=== PATIENT | male | born 1995 | race Caucasian/White ===

== ENCOUNTER 2016-11-03 14:41 | Emergency (ER) | payer OTHER ==
[~2016-11-03] VITALS: Wt 59.0 kg
[~2016-11-03 14:41] MED LIST: ALBUTEROL0.09 MG/A2 INH; ANUSOL-HC25 MG R; CIPRO500 MG PO; CLEOCIN150 MG PO; CLINDAMYCIN HC300 MG PO; DOXYCYCLINE MO100 MG PO; IBU-6600 MG PO; NORCO 5-325 TA1 EACH PO; TESSALON PERLE200 MG PO; TRAMADOL HCL50 MG PO; VOLTAREN50 M1 PO
[2016-11-03 14:42] VITALS: BP 139/54
[2016-11-03] MEDS ORDERED: VIBRAMYCIN100 MG PO (15:58)
[2016-11-03] MEDS ORDERED: MEDROL DOSEPAK4 MG PO (15:58)
[2016-11-03] MEDS ORDERED: ZYRTEC10 MG PO (15:59)
== END 2016-11-03 16:18 | disposition home or self-care (01) ==
LOC: ED 14:41
DX: J20.9 Acute bronchitis, unspecified (principal); J45.909 Unspecified asthma, uncomplicated; F17.200 Nicotine dependence, unspecified, uncomplicated; Z88.1 Allergy status to other antibiotic agents

== ENCOUNTER 2017-04-11 21:10 | Emergency (ER) | payer OTHER ==
[~2017-04-11] VITALS: Ht 175.2 cm; Wt 59.0 kg
[~2017-04-11 21:10] MED LIST changes: +MEDROL DOSEPAK4 MG PO; +VIBRAMYCIN100 MG PO; +ZYRTEC10 MG PO
[2017-04-11 23:05] VITALS: BP 118/72
[2017-04-11 23:59] LABS: BASO % 0.3 % (0.0-1.0); EOS # 0.1 10*3/uL (0.0-0.4); EOS % 0.6 % (1.0-4.0); HEMATOCRIT 38.6 % (42.0-52.0); HEMOGLOBIN 12.9 g/dl (14.0-18.0); LYMPH % 24.5 % (27.0-41.0); MEAN CELL VOLUME 85.8 fl (80.0-94.0); MEAN CORPUSCULAR HGB 28.7 pg (27.0-31.0); MEAN CORPUSCULAR HGB CONC 33.4 g/dl (33.0-37.0); MEAN PLATELET VOLUME 10.2 fl (9.6-12.3); MONO # 0.7 10*3/uL (0.1-1.0); MONO % 5.4 % (3.0-9.0); NEUT # 8.3 10*3/uL (2.3-7.9); PLATELET COUNT AUTOMATED 243 10*3/uL (130-400)
[2017-04-12] MEDS ORDERED: ALBUTEROL2.5 MG/0.5 INH (00:10)
[2017-04-12] MEDS ORDERED: DOXYCYCLINE100 M3 PO (00:10)
[2017-04-12] MEDS ORDERED: PREDNISONE10 MG PO (00:10)
[2017-04-12 00:11] LABS: ALBUMIN 3.7 gm/dl (3.1-4.5); ALKALINE PHOSPHATASE 79 U/L (45-117); BUN 12 mg/dl (7-24); CHLORIDE 106 mmol/L (98-107); CREATININE 0.73 mg/dL (0.70-1.30); LIPASE 170 U/L (73-393); POTASSIUM 3.7 mmol/L (3.5-5.1); SGOT/AST 27 IU/L (3-35); SGPT/ALT 43 U/L (12-78); SODIUM 139 mmol/L (136-145); TOTAL PROTEIN 7.8 gm/dL (6.4-8.2)
== END 2017-04-12 00:13 | disposition home or self-care (01) ==
LOC: ED 21:10
PROVIDERS: Nurse Practitioner Family
DX: J40 Bronchitis, not specified as acute or chronic (principal); F17.200 Nicotine dependence, unspecified, uncomplicated; Z88.1 Allergy status to other antibiotic agents; Z98.890 Other specified postprocedural states; Z79.899 Other long term (current) drug therapy

== ENCOUNTER 2018-05-19 18:40 | Emergency (ER) | payer BC, OTHER ==
[~2018-05-19] VITALS: Wt 59.0 kg
[~2018-05-19 18:40] MED LIST changes: +ALBUTEROL2.5 MG/0.5 INH; +DOXYCYCLINE100 M3 PO; +PREDNISONE10 MG PO
[2018-05-19] MEDS ORDERED: SUBOXONE 8 MG-1 EACH SL (18:41)
[2018-05-19 19:51] VITALS: BP 115/72
[2018-05-19] MEDS ORDERED: Ipratropium Brom3 ML INH (20:15)
[2018-05-19] MEDS ORDERED: CLINDAMYCIN150 MG PO (20:15)
[2018-05-19] MEDS ORDERED: PREDNISONE10 MG PO (20:15)
== END 2018-05-19 20:39 | disposition home or self-care (01) ==
LOC: ED 18:40
DX: J20.9 Acute bronchitis, unspecified (principal); J45.909 Unspecified asthma, uncomplicated; Z88.1 Allergy status to other antibiotic agents; Z88.6 Allergy status to analgesic agent

== ENCOUNTER 2019-06-28 15:32 | Emergency (ER) | payer OTHER ==
[~2019-06-28] VITALS: Ht 172.7 cm; Wt 59.0 kg
[~2019-06-28 15:32] MED LIST changes: +CLINDAMYCIN150 MG PO; +Ipratropium Brom3 ML INH; +SUBOXONE 8 MG-1 EACH SL
[2019-06-28 15:37] VITALS: BP 161/74
[2019-06-28 16:20] LABS: BASO # 0.1 10*3/uL (0.0-0.1); BASO % 0.6 % (0.0-1.0); EOS % 0.4 % (1.0-4.0); HEMATOCRIT 46.4 % (42.0-52.0); HEMOGLOBIN 15.2 g/dl (14.0-18.0); LYMPH # 2.5 10*3/uL (1.3-4.4); LYMPH % 24.6 % (27.0-41.0); MEAN CELL VOLUME 87.9 fl (80.0-94.0); MEAN CORPUSCULAR HGB 28.8 pg (27.0-31.0); MEAN CORPUSCULAR HGB CONC 32.8 g/dl (33.0-37.0); MEAN PLATELET VOLUME 10.1 fl (9.6-12.3); MONO # 0.6 10*3/uL (0.1-1.0); NEUT % 68.2 % (47.0-73.0); PLATELET COUNT AUTOMATED 281 10*3/uL (130-400); RED BLOOD COUNT 5.28 10*6/uL (4.50-5.90); RED CELL DISTRI WIDTH 12.9 % (0-14.5); WHITE BLOOD COUNT 10.3 10*3/uL (4.8-10.8)
[2019-06-28 16:21] LABS: BILIRUBIN NEGATIVE (NEGATIVE); BLOOD NEGATIVE (NEGATIVE); CLARITY CLEAR (CLEAR); COLOR STRAW (YELLOW); GLUCOSE NEGATIVE (NEGATIVE); KETONE TRACE (NEGATIVE); LEUKO ESTERASE NEGATIVE (NEGATIVE); NITRITE NEGATIVE (NEGATIVE); UROBILINOGEN 0.2 E.U./dl (0.2-1.0)
[2019-06-28 16:26] LABS: URINE AMPHETAMINES < 1000 (1000ng/ml); URINE BARBITURATES < 200 (200ng/ml); URINE BENZODIAZEPINES < 200 (200ng/ml); URINE CANNABINOIDS (THC) > 50 (50ng/ml); URINE COCAINE < 300 (300ng/ml); URINE METHADONE < 300 (300ng/ml); URINE OPIATES < 300 (300ng/ml); URINE PHENCYCLIDINE < 25 (25ng/ml)
[2019-06-28 16:29] LABS: BACTERIA 1+; EPITHELIAL CELLS 0-2; MUCOUS TRACE; RBC 0-2 rbc/hpf (0-2); WBC 0-2 wbc/hpf (0-5)
[2019-06-28 16:32] LABS: ALBUMIN 4.3 gm/dl (3.1-4.5); ALKALINE PHOSPHATASE 68 U/L (45-117); BUN 17 mg/dl (7-24); CHLORIDE 106 mmol/L (98-107); CREATININE 0.91 mg/dL (0.70-1.30); LIPASE 97 U/L (73-393); POTASSIUM 4.3 mmol/L (3.5-5.1); SGOT/AST 37 IU/L (3-35); SGPT/ALT 33 U/L (12-78); SODIUM 138 mmol/L (136-145); TOTAL PROTEIN 7.9 gm/dL (6.4-8.2); TROPONIN I < 0.015 ng/ml (<0.045)
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
[2019-06-29] MEDS ORDERED: BUPRENORPHINE HY8 MG SL (15:43)
== END 2019-06-28 19:11 | disposition left against medical advice (07) ==
LOC: ED 15:32 → EDHOLD 18:47 → ED 19:11
PROVIDERS: Nurse Practitioner Family
DX: L03.114 Cellulitis of left upper limb (principal); J45.909 Unspecified asthma, uncomplicated; F17.200 Nicotine dependence, unspecified, uncomplicated; Z88.1 Allergy status to other antibiotic agents; Z88.8 Allergy status to other drugs, medicaments and biological substances; Z79.2 Long term (current) use of antibiotics; Z79.899 Other long term (current) drug therapy

== ENCOUNTER 2019-06-29 11:37 | Inpatient (IN) | payer OTHER ==
[~2019-06-29] VITALS: Ht 175.2 cm; Wt 66.7 kg
[2019-06-29 11:52] VITALS: BP 137/73
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
--- NOTE | 2019-06-29 13:50 | NUR ---
MULTIPLE IV ATTEMPTS UNSUCCESSFULL. THIS RN SPOKE WITH SYL MITCHELL WHO IS TRAINED ON [facility] AND SHE STATES THAT I CAN TAKE THE PT TO THE FLOOR AND TO HAVE THE ADMITTING NURSE CALL HER TO ATTEMPT IV ACCESS PER [facility].
--- NOTE | 2019-06-29 14:10 | NUR ---
MARIXA RN NOTIFIED THAT SHE WAS TO CALL SYL MITCHELL TO COME TO FLOOR AND ATTEMPT IV ACCESS. MARIXA VOICED UNDERSTANDING AND WAS CALLING WHEN I LEFT THE NURSES STATION. MARIXA ALSO NOTIFIED THAT POWER FROM WOUND CARE MEASURED THE WOUND ON HER LEFT HAND BUT THAT MARIXA WAS STILL RESPONSIBLE TO "CALL FOR ORDERS" PER POWER.
[2019-06-29 14:20] VITALS: BP 137/73
--- NOTE | 2019-06-29 14:20 | NUR ---
Time: 1419 A 23 year old MALE admitted to 5E under services of NICOLETTE ROBERSON DO, Pt. arrived via stretcher from ER. Chief complaint: REDNESS PAIN AND SELLING TO LEFT HAND AND FOREARM. MARIXA PATEL
--- NOTE | 2019-06-29 14:46 | NUR ---
PATIENT DOES NOT MEET NEW VISION SERVICES AT THIS TIME. [place] STAFF WILL PROVIDE AFTERCARE RESOURCES FOR THE PATIENT. XIAO PHILLIPS B.A. CONSERVATION EDUCATOR
--- NOTE | 2019-06-29 14:54 | NUR ---
20 JOHN ACCUCATH TARTED IN RIGHT UPER EXTREMITY ON SECOND ATTMEPT, GOOD BLOOD RETURN FLUSHED WITHOUT DIFFICULTY PT TOLERATE WELL, U'S GUIDED WAS USED
[2019-06-29 14:55] LABS: BASO % 0.3 % (0.0-1.0); EOS % 0.2 % (1.0-4.0); HEMATOCRIT 43.8 % (42.0-52.0); HEMOGLOBIN 14.6 g/dl (14.0-18.0); LYMPH # 1.8 10*3/uL (1.3-4.4); LYMPH % 20.5 % (27.0-41.0); MEAN CELL VOLUME 87.8 fl (80.0-94.0); MEAN CORPUSCULAR HGB 29.3 pg (27.0-31.0); MEAN CORPUSCULAR HGB CONC 33.3 g/dl (33.0-37.0); MEAN PLATELET VOLUME 10.1 fl (9.6-12.3); MONO # 0.5 10*3/uL (0.1-1.0); MONO % 5.3 % (3.0-9.0); NEUT # 6.5 10*3/uL (2.3-7.9); NEUT % 73.6 % (47.0-73.0); PLATELET COUNT AUTOMATED 242 10*3/uL (130-400); RED BLOOD COUNT 4.99 10*6/uL (4.50-5.90); RED CELL DISTRI WIDTH 12.8 % (0-14.5); WHITE BLOOD COUNT 8.8 10*3/uL (4.8-10.8)
[2019-06-29 15:11] LABS: ALBUMIN 4.2 gm/dl (3.1-4.5); ALKALINE PHOSPHATASE 65 U/L (45-117); BUN 12 mg/dl (7-24); CHLORIDE 106 mmol/L (98-107); CREATININE 0.89 mg/dL (0.70-1.30); POTASSIUM 4.2 mmol/L (3.5-5.1); SGOT/AST 38 IU/L (3-35); SGPT/ALT 33 U/L (12-78); SODIUM 137 mmol/L (136-145); TOTAL PROTEIN 7.7 gm/dL (6.4-8.2)
--- NOTE | 2019-06-29 15:27 | NUR ---
DR. ALVARADO'S OFFICE STAFF NOTIFIED OF CONSULT.
[2019-06-29] MEDS ORDERED: BUPRENORPHINE HY8 MG SL (15:43)
[2019-06-29 16:00] VITALS: BP 137/80; BP 142/79
[2019-06-29 20:00] VITALS: BP 125/58
--- NOTE | 2019-06-29 23:27 | NUR ---
24hr chart check completed.
[2019-06-30] VITALS: BP 102/53
[2019-06-30 06:21] LABS: BASO # 0.1 10*3/uL (0.0-0.1); BASO % 0.9 % (0.0-1.0); EOS # 0.1 10*3/uL (0.0-0.4); EOS % 1.6 % (1.0-4.0); HEMATOCRIT 43.6 % (42.0-52.0); HEMOGLOBIN 14.4 g/dl (14.0-18.0); LYMPH # 2.5 10*3/uL (1.3-4.4); MEAN CELL VOLUME 87.4 fl (80.0-94.0); MEAN CORPUSCULAR HGB 28.9 pg (27.0-31.0); MEAN PLATELET VOLUME 10.3 fl (9.6-12.3); MONO # 0.7 10*3/uL (0.1-1.0); MONO % 8.8 % (3.0-9.0); NEUT # 4.7 10*3/uL (2.3-7.9); NEUT % 57.5 % (47.0-73.0); PLATELET COUNT AUTOMATED 231 10*3/uL (130-400); RED BLOOD COUNT 4.99 10*6/uL (4.50-5.90); RED CELL DISTRI WIDTH 12.8 % (0-14.5); WHITE BLOOD COUNT 8.2 10*3/uL (4.8-10.8)
[2019-06-30 06:35] LABS: ALBUMIN 3.8 gm/dl (3.1-4.5); ALKALINE PHOSPHATASE 58 U/L (45-117); BUN 14 mg/dl (7-24); CHLORIDE 109 mmol/L (98-107); CHOLESTEROL 151 mg/dL (<200); CREATININE 0.85 mg/dL (0.70-1.30); FREE T4 0.87 ng/dl (0.76-1.46); HDL CHOLESTEROL 55 mg/dl (40-60); LDL CHOLESTEROL 74 mg/dL (9-159); PHOSPHOROUS 3.8 mg/dL (2.5-4.9); POTASSIUM 4.2 mmol/L (3.5-5.1); SGOT/AST 29 IU/L (3-35); SGPT/ALT 29 U/L (12-78); SODIUM 138 mmol/L (136-145); TOTAL PROTEIN 7.1 gm/dL (6.4-8.2); TRIGLYCERIDES 109 mg/dl (<150); VLDL CHOLESTEROL 22 mg/dL (6-40)
[2019-06-30 08:00] VITALS: BP 100/54
--- NOTE | 2019-06-30 09:00 | NUR ---
case management visits with patient, he states he lives at home and is independent in adls and ambulation, he states he will return home when medically stable and denies any home needs
--- NOTE | 2019-06-30 11:59 | NUR ---
Nutritional Support Services Note: Pt is on a regular diet consuming 100% of meals. CBW: 147# Ht: 5'9" Pt has cellulitis to L arm noted. Will provide pt w/ a night time snack. Continue to encourage good PO intakes to support healing. Will follow if needed. MYA Bowers events intern
[2019-06-30 12:00] VITALS: BP 108/62
--- NOTE | 2019-06-30 15:30 | NUR ---
CALLED TO PATIENTS ROOM AFTER STARTING MAXIPIME FOR PATIENT FEELING HOT, SWELLING IN FACE AND REDNESS. PT ALSO STATES HIS TONGUE FEELS NUMB. IV STOPPED. DR. VALLECILLO NOTIFIED. IV BENADRYL GIVEN. DR. VALLECILLO TO THE FLOOR.
--- NOTE | 2019-06-30 15:45 | NUR ---
DR. ALVARADO NOTIFIED OF REACTION TO IV ABTIBIOTICS, NEW ORDERS RECIEVED. ORDERED PATIENT TO RESUME MERREM AND TO START IT SLOW FOR THE FIRST DOSE LATER THIS EVENING.
[2019-06-30 16:00] VITALS: BP 116/59
--- NOTE | 2019-06-30 16:27 | NUR ---
SWELLING IN PATIENT'S FACE HAS NORMALIZED AND PATIENT IS FEELING BETTER. STATES HE STILL HAVING SOME BLURRED VISION BUT OVERALL IS BACK TO NORMAL. ORAL PREDNISONE GIVEN PER ORDER.
--- NOTE | 2019-06-30 19:00 | NUR ---
ASSUMED CARE FOR THIS PT AT THIS TIME. PT RESTING QUIETLY IN BED. NO S/S OF DISTRESS NOTED. CALL LIGHT IN REACH.
[2019-06-30 20:00] VITALS: BP 123/57
--- NOTE | 2019-06-30 20:50 | NUR ---
PT MEDICATED W/TYLENOL FOR C/O LT HAND PAIN. LT HAND SWOLLEN/WARM TO TOUCH. CALL LIGHT IN REACH.
[2019-07-01] VITALS: BP 110/56
--- NOTE | 2019-07-01 06:05 | NUR ---
PT MEDICATED W/TYLENOL FOR C/O LT HAND PAIN 11/24. PT ADVISED TO ASK FOR MOTRIN IN A COUPLE HOURS AND ALTERNATE W/TYLENOL. PT VOICES UNDERSTANDING. ICE PACK GIVEN TO PT FOR LT HAND SWELLING.
[2019-07-01 08:00] VITALS: BP 128/68
--- NOTE | 2019-07-01 09:00 | NUR ---
case management visits with patient, he denies any home needs at this time
--- NOTE | 2019-07-01 09:30 | NUR ---
PATIENT C/O LEFT THUMB PAIN RATES PAIN 6/10N AND DESCRIBES PRESSURE, MEDICATED WITHB IBUPROFEN ORDERED PRN.
--- NOTE | 2019-07-01 10:34 | NUR ---
PATIENT REPORTS GOOD RELIEF FROM MOTRIN GIVEN X 1 HOUR AGO.
[2019-07-01] MEDS ORDERED: DOXYCYCLINE100 M3 PO (10:37)
[2019-07-01] MEDS ORDERED: PREDNISONE5 MG PO (10:37)
[2019-07-01] MEDS ORDERED: LEVAQUIN500 M2 PO (10:37)
[2019-07-01 10:40] LABS: BASO % 0.4 % (0.0-1.0); EOS # 0.1 10*3/uL (0.0-0.4); EOS % 0.8 % (1.0-4.0); HEMATOCRIT 41.3 % (42.0-52.0); HEMOGLOBIN 13.8 g/dl (14.0-18.0); LYMPH # 2.1 10*3/uL (1.3-4.4); LYMPH % 27.2 % (27.0-41.0); MEAN CELL VOLUME 86.8 fl (80.0-94.0); MEAN CORPUSCULAR HGB CONC 33.4 g/dl (33.0-37.0); MEAN PLATELET VOLUME 10.2 fl (9.6-12.3); MONO # 0.5 10*3/uL (0.1-1.0); MONO % 6.3 % (3.0-9.0); NEUT % 65.2 % (47.0-73.0); PLATELET COUNT AUTOMATED 227 10*3/uL (130-400); RED BLOOD COUNT 4.76 10*6/uL (4.50-5.90); RED CELL DISTRI WIDTH 12.7 % (0-14.5); WHITE BLOOD COUNT 7.7 10*3/uL (4.8-10.8)
[2019-07-01 11:18] LABS: BUN 12 mg/dl (7-24); CHLORIDE 112 mmol/L (98-107); CREATININE 0.84 mg/dL (0.70-1.30); POTASSIUM 4.2 mmol/L (3.5-5.1); SODIUM 142 mmol/L (136-145); VANCOMYCIN TROUGH 14.7 ug/mL (10-20)
[2019-07-01 12:00] VITALS: BP 130/74
--- NOTE | 2019-07-01 13:30 | NUR ---
Discharge instructions reviewed with patient/family. Patient receptive and verbalizes understanding. Follow-up care arranged. Written instructions given to patient/family. IV REMOVED, REFUSED W/C FOR DICHARGE. GIOVANY DE JESUS
== END 2019-07-01 13:30 | disposition home or self-care (01) | DRG 383 ==
LOC: ED 11:37 → EDHOLD 12:24 → 5E 12:24
PROVIDERS: Internal Medicine; Registered Nurse; ADMIT Internal Medicine
DX: L03.114 Cellulitis of left upper limb (principal); F11.10 Opioid abuse, uncomplicated; R73.9 Hyperglycemia, unspecified; L98.8 Other specified disorders of the skin and subcutaneous tissue; Z87.891 Personal history of nicotine dependence; Z88.1 Allergy status to other antibiotic agents; Z88.5 Allergy status to narcotic agent; L25.8 Unspecified contact dermatitis due to other agents; T36.1X5A Adverse effect of cephalosporins and other beta-lactam antibiotics, initial encounter; Y92.238 Other place in hospital as the place of occurrence of the external cause; R06.00 Dyspnea, unspecified; E83.41 Hypermagnesemia

== ENCOUNTER 2019-07-11 10:01 | Emergency (ER) | payer OTHER ==
[~2019-07-11] VITALS: Ht 172.7 cm; Wt 63.5 kg
[~2019-07-11 10:01] MED LIST changes: +BUPRENORPHINE HY8 MG SL; +LEVAQUIN500 M2 PO; +PREDNISONE5 MG PO
[2019-07-11 10:04] VITALS: BP 125/56
[2019-07-11] MEDS ORDERED: Bactroban Oint22 GM T (10:16)
== END 2019-07-11 10:35 | disposition home or self-care (01) ==
LOC: ED 10:01
DX: S61.402A Unspecified open wound of left hand, initial encounter (principal); M79.89 Other specified soft tissue disorders; J45.909 Unspecified asthma, uncomplicated; F17.210 Nicotine dependence, cigarettes, uncomplicated; Z88.1 Allergy status to other antibiotic agents; Z88.8 Allergy status to other drugs, medicaments and biological substances; Z79.2 Long term (current) use of antibiotics; Z79.899 Other long term (current) drug therapy; X58.XXXA Exposure to other specified factors, initial encounter; Y93.89 Activity, other specified; Y92.89 Other specified places as the place of occurrence of the external cause; Y99.8 Other external cause status

== ENCOUNTER 2024-01-09 09:24 | Emergency (ER) | payer OTHER ==
[~2024-01-09] VITALS: Ht 172.7 cm; Wt 59.0 kg
[~2024-01-09 09:24] MED LIST changes: +Bactroban Oint22 GM T
[2024-01-09 09:35] VITALS: BP 147/128
[2024-01-09] MEDS ORDERED: SUBOXONE 8 MG-1 EACH BC (09:36)
[2024-01-09] MEDS ORDERED: LORazepam 0.5 MG TAB PO ONE (10:00)
[2024-01-09] MEDS ORDERED: Albuterol Sulf/Ipratropium 3 ML VIAL NEB ONE (10:00)
[2024-01-09 10:27] LABS: BASO # 0.1 10*3/uL (0.0-0.1); BASO % 0.4 % (0.0-1.0); EOS # 0.1 10*3/uL (0.0-0.4); EOS % 0.6 % (1.0-4.0); HEMATOCRIT 43.3 % (42.0-52.0); LYMPH # 1.8 10*3/uL (1.3-4.4); LYMPH % 13.8 % (27.0-41.0); MEAN CELL VOLUME 88.9 fl (80.0-94.0); MEAN CORPUSCULAR HGB 28.5 pg (27.0-31.0); MEAN CORPUSCULAR HGB CONC 32.1 g/dl (33.0-37.0); MEAN PLATELET VOLUME 9.6 fl (9.6-12.3); MONO # 0.7 10*3/uL (0.1-1.0); MONO % 5.5 % (3.0-9.0); NEUT # 10.1 10*3/uL (2.3-7.9); NEUT % 79.4 % (47.0-73.0); PLATELET COUNT AUTOMATED 310 10*3/uL (130-400); RED BLOOD COUNT 4.87 10*6/uL (4.50-5.90); RED CELL DISTRI WIDTH 13.3 % (0-14.5); WHITE BLOOD COUNT 12.7 10*3/uL (4.8-10.8)
[2024-01-09 10:44] LABS: ACT PARTIAL THROMBO TIME 30.2 SECONDS (20.0-32.1)
[2024-01-09 10:56] LABS: BUN 12 mg/dl (9-23); CHLORIDE 107 mmol/L (98-107)
[2024-01-09] MEDS ORDERED: METHOCARBAMOL 750 MG TAB PO ONE (11:15)
[2024-01-09] MEDS ORDERED: METHOCARBAMOL750 M1 PO (12:16)
[2024-01-09] MEDS ORDERED: VENT7GM INH (12:16)
== END 2024-01-09 12:27 | disposition home or self-care (01) ==
LOC: ED 09:24
PROVIDERS: Internal Medicine
DX: F41.9 Anxiety disorder, unspecified (principal); M62.838 Other muscle spasm; F32.A Depression, unspecified; J45.909 Unspecified asthma, uncomplicated; Z88.1 Allergy status to other antibiotic agents; Z88.8 Allergy status to other drugs, medicaments and biological substances; Z98.890 Other specified postprocedural states; Z72.0 Tobacco use

== ENCOUNTER 2024-03-03 10:14 | Emergency (ER) | payer OTHER ==
[~2024-03-03] VITALS: Ht 175.2 cm; Wt 59.0 kg
[~2024-03-03 10:14] MED LIST changes: +METHOCARBAMOL750 M1 PO; +SUBOXONE 8 MG-1 EACH BC; +VENT7GM INH
[2024-03-03 10:24] VITALS: BP 135/69
[2024-03-03] MEDS ORDERED: ZANAFLEX2 M1 PO (10:47)
[2024-03-03] MEDS ORDERED: Dexamethasone Sodium Phospha 20 MG/5 ML VIAL IM ONE (10:50)
== END 2024-03-03 12:19 | disposition home or self-care (01) ==
LOC: ED 10:14
DX: M62.838 Other muscle spasm (principal); M54.2 Cervicalgia; M25.512 Pain in left shoulder; F32.A Depression, unspecified; J45.909 Unspecified asthma, uncomplicated; Z88.1 Allergy status to other antibiotic agents; Z88.8 Allergy status to other drugs, medicaments and biological substances; Z98.890 Other specified postprocedural states; Z72.0 Tobacco use

== ENCOUNTER 2025-04-17 15:59 | Emergency (ER) | payer OTHER ==
[~2025-04-17] VITALS: Wt 77.1 kg
[~2025-04-17 15:59] MED LIST changes: +ZANAFLEX2 M1 PO
[2025-04-17 16:14] VITALS: BP 149/84
[2025-04-17] MEDS ORDERED: CLINDAMYCIN HC300 MG PO (16:26)
[2025-04-17] MEDS ORDERED: CLINDAMYCIN HCL 300 MG CAPSULE PO ONE (16:30)
[2025-04-17] MEDS ORDERED: EPIPEN 2-P0.3 MG/0.3 IJ (16:45)
== END 2025-04-17 16:37 | disposition home or self-care (01) ==
LOC: ED 15:59
DX: K04.7 Periapical abscess without sinus (principal); K02.9 Dental caries, unspecified; F32.A Depression, unspecified; J45.909 Unspecified asthma, uncomplicated; F41.9 Anxiety disorder, unspecified; Z88.1 Allergy status to other antibiotic agents; Z88.8 Allergy status to other drugs, medicaments and biological substances; Z79.899 Other long term (current) drug therapy; F17.200 Nicotine dependence, unspecified, uncomplicated; Z98.890 Other specified postprocedural states